=== PATIENT | female | born 1975 | race Caucasian/White ===

== ENCOUNTER 2019-10-03 11:16 | Emergency (ER) | payer BC ==
[~2019-10-03] VITALS: Ht 160 cm; Wt 67.5 kg
[2019-10-03 11:17] VITALS: BP 147/71
[2019-10-03] MEDS ORDERED: PROAAER10 INH (11:23)
[2019-10-03] MEDS ORDERED: SYMB16INH INH (11:23)
== END 2019-10-03 13:00 | disposition home or self-care (01) ==
LOC: M ED 11:16
DX: F43.20 Adjustment disorder, unspecified (principal); E07.9 Disorder of thyroid, unspecified; Z79.899 Other long term (current) drug therapy

== ENCOUNTER → 2020-11-17 | Outpatient (CLI) | payer BC ==
[~2020-11-17] MED LIST: PROAAER10 INH; SYMB16INH INH
--- NOTE | 2020-11-17 08:05 | REPVR ---
PROCEDURE INFORMATION: Exam: CT Maxillofacial Without Contrast, Sinus Exam date and time: 11/17/2020 7:22 AM Age: 45 years old Clinical indication: Pain; Other: Nasal cavity; Additional info: Polyp of nasal cavity TECHNIQUE: Imaging protocol: CT Maxillofacial without contrast. Focus on the sinuses. Radiation optimization: All CT scans at this facility use at least one of these dose optimization techniques: automated exposure control; mA and/or kV adjustment per patient size (includes targeted exams where dose is matched to clinical indication); or iterative reconstruction. COMPARISON: No relevant prior studies available. FINDINGS: Frontal sinuses: There is mild mucosal thickening along the floors of the frontal sinuses. The frontoethmoidal recesses are effaced. No air-fluid levels. Ethmoid air cells: There is opacification of multiple ethmoid air cells. No air-fluid levels. Sphenoid sinuses: There are trace air-fluid levels within the sphenoid sinuses in a background of mild mucosal thickening. Maxillary sinuses: There is moderate maxillary sinus mucosal thickening. The maxillary sinus infundibula are obscured by mucosal thickening. Nasal cavity/Septum: There is polypoid mucosal thickening within left nasal cavity. Orbital cavity: Orbits are normal. Globes are unremarkable. Bones/joints: Unremarkable. Soft tissues: Unremarkable. IMPRESSION: Sinus mucosal disease with superimposed left nasal polyposis. Electronically signed by: Radha Stauffer On 11/17/2020 08:05:15 AM
== END ==
LOC: M RAD 07:11
PROVIDERS: ATTEND Specialist
DX: J33.0 Polyp of nasal cavity (principal); J32.4 Chronic pansinusitis

== ENCOUNTER → 2020-12-14 | Outpatient (CLI) | payer BC ==
[~2020-12-14] MED LIST changes: +CALC1CAP31; +LEVO100T5; +VENTAER
== END ==
LOC: M LABSMTC 14:02
PROVIDERS: ATTEND Anesthesiology
DX: Z01.812 Encounter for preprocedural laboratory examination (principal); Z20.822 Contact with and (suspected) exposure to COVID-19

== ENCOUNTER 2020-12-18 07:59 | Day surgery (SDC) | payer BC ==
[~2020-12-18] VITALS: Ht 160 cm; Wt 69.9 kg
[2020-12-18] MEDS ORDERED: EPINEPHrine 1MG/ML INJ 30ML MD-VIAL As Ordered ONE (10:15)
[2020-12-18] MEDS ORDERED: METHYLENE BLUE 0.5% (5MG/ML) 10 ML AMP (PROVAYBLUE) As Ordered ONE (10:15)
[2020-12-18] MEDS ORDERED: LIDOCAINE W/EPINEPHRINE 1% 20ML VIAL As Ordered ONE (10:15)
[2020-12-18] MEDS ORDERED: OXYMETAZOLINE 0.05% NASAL SPRAY (AFRIN) As Ordered ONE (10:15)
[2020-12-18] MEDS ORDERED: SUGAMMADEX SODIUM 500 MG/5 ML VIAL (BRIDION) As Ordered ONE (10:47)
[2020-12-18] MEDS ORDERED: fentaNYL 250 MCG/5 ML INJECTION (J3010) As Ordered ONE (10:47)
[2020-12-18] MEDS ORDERED: MIDAZOLAM INJ 2MG/2ML VIAL (J2250 PER 1MG) As Ordered ONE (10:47)
[2020-12-18] MEDS ORDERED: LIDOCAINE 2% 100MG/5ML SDV (FOR ANES.) As Ordered ONE (10:47)
[2020-12-18] MEDS ORDERED: ONDANSETRON 4MG/2ML VIAL As Ordered ONE (10:47)
[2020-12-18] MEDS ORDERED: ROCURONIUM BROMIDE 50 MG/5 ML VIAL As Ordered ONE (10:47)
[2020-12-18] MEDS ORDERED: dexameTHASONE 4 MG/ML 1ML VIAL (J1100 PER 1MG) As Ordered ONE (10:47)
[2020-12-18] MEDS ORDERED: propofoL 200 MG/20 ML VIAL As Ordered ONE (10:47)
[2020-12-18] MEDS ORDERED: ACETAMINOPHEN 1000MG 100ML IV BTL (OFIRMEV) (J0131 PER 10MG) As Ordered ONE (11:02)
[2020-12-18] MEDS ORDERED: ONDANSETRON 4MG/2ML VIAL IV PRN (11:50)
[2020-12-18] MEDS ORDERED: oxyCODONE 5MG TAB PO PRN (11:50)
[2020-12-18] MEDS ORDERED: HYDROMORPHONE HCL 0.5 MG/ 0.5 ML SYRINGE (J1170 PER 1) IV PRN (11:50)
[2020-12-18] MEDS ORDERED: LR 1,000 ML IV SCH (11:50)
[2020-12-18] MEDS ORDERED: PERCOCET 5MG/325MG TAB PO PRN (11:50)
[2020-12-18] MEDS ORDERED: fentaNYL 100 MCG/2 ML INJECTION (J3010) IV PRN (11:50)
[2020-12-18 13:00] VITALS: BP 134/85
--- NOTE | 2021-01-02 16:04 | RO ---
OPERATIVE NOTE DATE OF OPERATION: 12/18/2020 PREOPERATIVE DIAGNOSIS: Left chronic maxillary and ethmoid sinusitis with nasal polyposis. POSTOPERATIVE DIAGNOSIS: Left chronic maxillary and ethmoid sinusitis with nasal polyposis. PROCEDURE: Left endoscopic ethmoidectomy with maxillary antrostomy. SURGEON: Alex García MD FACING SLITTER: ANESTHESIA: INDICATIONS: This is a 45-year-old who presents with total left-sided nasal obstruction with nasal polyposis. Examination revealed complete filling of left nasal cavity with polyps, right side showed no evidence of significant polyp disease. DESCRIPTION OF PROCEDURE: Satisfactory general endotracheal anesthesia was administered. Pharyngeal pack placed. Nose was prepared for surgery by placing cotton-soaked pledgets with Afrin solution to the nasal cavity on left side. Surgery began with 0-degree telescope. Microdebriders were primary instrument. 1% Xylocaine with 1:100,000 Epinephrine was used to inject lateral nasal wall and polyp tissue was grossly visible. She had been treated preoperatively with Prednisone and shrunk the bulk of polyp tissue down. The landmarks of the middle meatus were visible. The middle turbinate was identified, lateral nasal wall was seen and surgery began by resecting the gross polyp disease in the middle meatus so the natural landmarks could be found and the uncinate process was resected away with microdebrider. Ethmoidal bulla perforated, hyperplastic mucosa resected from the ethmoidal bulla and then the ground lamella was perforated in posterior inferior medial quadrant. The posterior ethmoid cells were entered. Polypoid tissue was resected with microdebrider following the skull base, lamina papyracea anteriorly, lamella bone, and hyperplastic tissue was resected. The uncinate process was taken down superiorly. The superior ethmoid cell was opened up and enlarged the nasal bone recess. The maxillary sinus ostium was identified, and it was enlarged with a combination of side biting and upbiting forceps. Adrenalin pledgets were placed into the nose for 3 minutes and these were removed and there was no significant bleeding. A Propel implant was inserted into the middle meatus for support and Sinu-Foam was used to fill the implant. Pharyngeal pack was removed, thoroughly suctioned. The patient was awakened and extubated and sent to recovery room in satisfactory condition. She will be seen back in less than 3 days.
== END 2020-12-18 13:10 | disposition home or self-care (01) ==
LOC: M SDC 07:59
PROVIDERS: ATTEND Specialist
DX: J34.2 Deviated nasal septum (principal); J45.909 Unspecified asthma, uncomplicated; E03.9 Hypothyroidism, unspecified; Z79.51 Long term (current) use of inhaled steroids; Z79.899 Other long term (current) drug therapy
CPT/HCPCS: 31254; 81025; 88305; C2625; J0131; J1100; J2250; J2405; J3010; Q9968